=== PATIENT | female | born 1965 ===

== ENCOUNTER 2017-02-16 13:31 | Emergency (ER) | payer MEDICAID ==
[2017-02-16 13:33] VITALS: BMI 23.8
[2017-02-16 13:36] VITALS: RESP 18; TEMP 97.9
--- NOTE | 2017-02-16 14:24 | C.PDOC ---
History Of Present Illness 51 yr old female presents to the ER for sensations of dizziness and spinning for a long time. Patient states she had similar symptoms in the past and was given unknown medicine for it but has not taken any medicine recently. Patient denies fever, vision changes, nausea, vomiting or neck pain. Time Seen by Provider: 02/16/17 14:08 Chief Complaint (Nursing): Dizziness/Lightheaded History Per: Patient History/Exam Limitations: no limitations Onset/Duration Of Symptoms: Days Current Symptoms Are (Timing): Still Present Past Medical History Reviewed: Historical Data, Nursing Documentation, Vital Signs Vital Signs: Last Vital Signs Temp 97.9 F 02/16/17 16:42 Pulse 68 02/16/17 16:42 Resp 18 02/16/17 16:42 BP 122/84 02/16/17 16:42 Pulse Ox 99 02/16/17 16:42 - Medical History PMH: Colonic Polyps, Depression, Gastritis - [facility] Procedures CLOSED ENDOSCOPIC BIOPSY OF LARGE INTESTINE (02/10/13) Family History: States: No Known Family Hx - Social History Hx Tobacco Use: No Hx Alcohol Use: No Hx Substance Use: No - Immunization History Hx Tetanus Toxoid Vaccination: Yes Hx Influenza Vaccination: Yes Hx Pneumococcal Vaccination: Yes Review Of Systems Except As Marked, All Systems Reviewed And Found Negative. Constitutional: Negative for: Fever Eyes: Negative for: Vision Change Gastrointestinal: Negative for: Nausea, Vomiting Musculoskeletal: Negative for: Neck Pain Neurological: Positive for: Dizziness Physical Exam - Physical Exam Appears: Non-toxic, No Acute Distress Skin: Warm, Dry Head: Atraumatic, Normacephalic Eye(s): bilateral: Other (Bilateral horizontal fast nystagmus. ) Chest: Symmetrical, No Tenderness Cardiovascular: Rhythm Regular, No Murmur Respiratory: Normal Breath Sounds, No Rales, No Rhonchi, No Wheezing Extremity: Normal ROM, No Swelling Neurological/Psych: Oriented x3, Normal Speech, Normal Motor ED Course And Treatment O2 Sat by Pulse Oximetry: 95 (RA) Pulse Ox Interpretation: Normal - CT Scan/US CT - Head Other Rad Studies (CT/US): Read By Radiologist, Radiology Report Reviewed CT/US Interpretation: PROCEDURE: CT HEAD WITHOUT CONTRAST. HISTORY: VERTIGO. COMPARISON: None available. TECHNIQUE: Axial computed tomography images were obtained through the head/brain without intravenous contrast. Radiation dose: Total exam DLP = 821 mGy-cm. This CT exam was performed using one or more of the following dose reduction techniques: Automated exposure control, adjustment of the mA and/or kV according to patient size, and/or use of iterative reconstruction technique. FINDINGS: HEMORRHAGE: No intracranial hemorrhage. BRAIN: No mass effect or edema. No atrophy or chronic microvascular ischemic changes. Bilateral basal ganglia calcifications. VENTRICLES: Unremarkable. No hydrocephalus. CALVARIUM: Unremarkable. PARANASAL SINUSES: Mild mucosal thickening of the maxillary sinuses. MASTOID AIR CELLS: Unremarkable as visualized. No inflammatory changes. OTHER FINDINGS : None. IMPRESSION: No acute intracranial abnormality. If focal neurologic deficit persists, consider MRI. Reevaluation Time: 15:51 Reassessment Condition: Unchanged (CO PERSIST VERTIGO. PT ON CELL PHONE, APPEARS COMFORTABLE. STEADY GAIT, NO FOCAL DEF. CT NEG) Progress - Re-Evaluation Re-evaluation Note: 02/16/17 17:43 EATING WO DIFFICULTY, NO FOCAL NEURO DEF. ADVISED FU PMD - Data Reviewed Data Reviewed: Diagnostic imaging, Old records Medical Decision Making Medical Decision Making: PLAN: * CT - Head * Meclizine PO * Zofran PO Disposition Counseled Patient/Family Regarding: Studies Performed, Diagnosis, Need For Followup, Rx Given - Disposition Referrals: YOUR,PMD [Other] Disposition: HOME/ ROUTINE Disposition Time: 17:43 Condition: IMPROVED Prescriptions: Meclizine [Antivert] 50 mg PO TID PRN #21 tab PRN Reason: Dizziness Instructions: Vertigo (ED) Forms: [facility] (Korean) Print Language: SAMI - Clinical Impression Clinical Impression: Vertigo - Scribe Statement The provider has reviewed the documentation as recorded by the Dayday Olivear Provider Attestation: All medical record entries made by the Dayday were at my direction and personally dictated by me. I have reviewed the chart and agree that the record accurately reflects my personal performance of the history, physical exam, medical decision making, and the department course for this patient. I have also personally directed, reviewed, and agree with the discharge instructions and disposition.
--- NOTE | 2017-02-16 15:14 | CT ---
PROCEDURE: CT HEAD WITHOUT CONTRAST. HISTORY: VERTIGO COMPARISON: None available. TECHNIQUE: Axial computed tomography images were obtained through the head/brain without intravenous contrast. Radiation dose: Total exam DLP = 821 mGy-cm. This CT exam was performed using one or more of the following dose reduction techniques: Automated exposure control, adjustment of the mA and/or kV according to patient size, and/or use of iterative reconstruction technique. FINDINGS: HEMORRHAGE: No intracranial hemorrhage. BRAIN: No mass effect or edema. No atrophy or chronic microvascular ischemic changes. Bilateral basal ganglia calcifications. VENTRICLES: Unremarkable. No hydrocephalus. CALVARIUM: Unremarkable. PARANASAL SINUSES: Mild mucosal thickening of the maxillary sinuses. MASTOID AIR CELLS: Unremarkable as visualized. No inflammatory changes. OTHER FINDINGS: None. IMPRESSION: No acute intracranial abnormality. If focal neurologic deficit persists, consider MRI.
[2017-02-16 16:43] VITALS: BP 122/84; PULSE 68
[2017-02-16 17:44] VITALS: O2SAT 95
== END 2017-02-16 18:02 | disposition home or self-care (01) ==
LOC: C.ER 13:31
DX: R42 Dizziness and giddiness (principal)

== ENCOUNTER 2017-06-10 11:09 | Emergency (ER) | payer MEDICAID ==
[2017-06-10 11:10] VITALS: BMI 23.8
[2017-06-10 11:21] VITALS: RESP 18; O2SAT 100
[2017-06-10] MEDS ORDERED: Lidocaine 5% Patch TD STA (11:37)
[2017-06-10] MEDS ORDERED: Dexamethasone 4 mg/1 ml IM STA (11:37)
[2017-06-10] MEDS ORDERED: Lidocaine 5% Patch TD ONE (12:40)
[2017-06-10] MEDS ORDERED: Dexamethasone 4 mg/1 ml ONE (12:40)
--- NOTE | 2017-06-10 12:56 | C.PDOC ---
History Of Present Illness The patient reports 2 days history of lower back pain which is described as sharp and non-radiating. Patient also reports dizziness which is described as the room spinning. Patient reports that this feel similar to her previous vertigo. Denies headache, trauma, fever, abdominal pain, nausea/vomiting, numbness, weakness, bowel/bladder incontinence. Time Seen by Provider: 06/10/17 11:23 Chief Complaint (Nursing): Back Pain History Per: Patient History/Exam Limitations: no limitations Onset/Duration Of Symptoms: Days Current Symptoms Are (Timing): Still Present Exacerbating Factor(s): Turning, Movement Recent travel outside of the [place]: No Past Medical History Vital Signs: Last Vital Signs Temp 98.2 F 06/10/17 13:06 Pulse 74 06/10/17 13:06 Resp 18 06/10/17 13:06 BP 126/75 06/10/17 13:06 Pulse Ox 100 06/10/17 13:11 - Medical History PMH: Colonic Polyps, Depression, Gastritis Denies: Chronic Kidney Disease - [facility] Procedures CLOSED ENDOSCOPIC BIOPSY OF LARGE INTESTINE (02/10/13) Family History: States: Unknown Family Hx - Social History Hx Tobacco Use: No Hx Alcohol Use: No Hx Substance Use: No - Immunization History Hx Tetanus Toxoid Vaccination: Yes Hx Influenza Vaccination: Yes Hx Pneumococcal Vaccination: Yes Physical Exam - Physical Exam Appears: Non-toxic, No Acute Distress Skin: Normal Color, Warm, No Rash Head: Atraumatic, Normacephalic Eye(s): bilateral: Normal Inspection, PERRL, EOMI Oral Mucosa: Moist Throat: No Erythema, No Exudate Neck: Normal ROM, No Midline Cervical Tenderness, No Paracervical Tenderness, Supple Chest: Symmetrical, No Tenderness Cardiovascular: Rhythm Regular, No Friction Rub, No Murmur Respiratory: Normal Breath Sounds, No Rales, No Rhonchi, No Wheezing Gastrointestinal/Abdominal: Bowel Sounds (active), Soft, No Tenderness Back: Normal Inspection, No CVA Tenderness Extremity: Normal ROM, No Swelling Neurological/Psych: Oriented x3, Normal Speech, Normal Cranial Nerves, Normal Motor, Normal Sensation Gait: Steady ED Course And Treatment O2 Sat by Pulse Oximetry: 100 (on RA) Pulse Ox Interpretation: Normal Medical Decision Making Medical Decision Making: On first re-exam, the patient states that she still has dizziness. Meclizine ordered. On re-exam, the patient reports improvement of symptoms. Lungs are CTA, heart is RRR, abdomen is soft, non-tender, and patient is tolerating PO well.. Ambulatory in the ED with steady gait. Follow up with the medical doctor within 1-2 days. Return if worsened. Disposition - Disposition Referrals: Felisa Gama MD [Staff Provider] - Disposition: HOME/ ROUTINE Disposition Time: 12:50 Condition: GOOD Additional Instructions: Follow up with the medical doctor within 1-2 days. Return if worsened. Prescriptions: Diazepam [Valium] 2 mg PO BID #20 tablet Lidocaine 5% [Lidoderm] 1 each TP DAILY #10 patch Naproxen [Naprosyn] 500 mg PO BID #20 tab Instructions: Vertigo (ED), Acute Low Back Pain (ED) Forms: [facility] (Latvian) Print Language: MONGOLIAN - Clinical Impression Clinical Impression: Low back pain, Vertigo
[2017-06-10 13:08] VITALS: BP 126/75; PULSE 74; TEMP 98.2
== END 2017-06-10 13:19 | disposition home or self-care (01) ==
LOC: C.ER 11:09
DX: M54.5 Low back pain (principal); R42 Dizziness and giddiness
CPT/HCPCS: 96372; 99283; J1100; J1885

== ENCOUNTER 2017-08-27 23:16 | Emergency (ER) | payer MEDICAID ==
[2017-08-27 23:16] VITALS: BMI 23.8
--- NOTE | 2017-08-27 23:54 | C.PDOC ---
History Of Present Illness The patient presents to the ED for evaluation of epigastric discomfort and diffuse throat itchiness (unknown trigger) which began earlier today. Patient states she found improvement after taking an allergy pill and is able to speak in complete sentences. Patient denies fever, chills, throat swelling sensation, shortness of breath, cough, nausea, vomiting, diarrhea. Time Seen by Provider: 08/27/17 23:54 Chief Complaint (Nursing): Abdominal Pain History Per: Patient History/Exam Limitations: no limitations Onset/Duration Of Symptoms: Hrs Current Symptoms Are (Timing): Better Severity: Mild Pain Scale Rating Of: 2 Location Of Pain/Discomfort: Epigastric Radiation Of Pain To:: None Quality Of Discomfort: "Pain" Associated Symptoms: denies: Fever, Chills, Nausea, Vomiting, Diarrhea Exacerbating Factors: Other (unknown ) Alleviating Factors: Other (allergy pill ) Last Bowel Movement: Today Recent travel outside of the [place]: No Additional History Per: Patient Abnormal Vaginal Bleeding: No Past Medical History Reviewed: Historical Data, Nursing Documentation, Vital Signs Vital Signs: Last Vital Signs Temp 97.9 F 08/27/17 23:43 Pulse 70 08/27/17 23:43 Resp 16 08/27/17 23:43 BP 134/82 08/27/17 23:43 Pulse Ox 99 08/28/17 01:09 - Medical History PMH: Colonic Polyps, Depression, Gastritis Denies: Chronic Kidney Disease Surgical History: No Surg Hx - [facility] Procedures CLOSED ENDOSCOPIC BIOPSY OF LARGE INTESTINE (02/10/13) Family History: States: Unknown Family Hx - Social History Hx Tobacco Use: No Hx Alcohol Use: No Hx Substance Use: No - Immunization History Hx Tetanus Toxoid Vaccination: Yes Hx Influenza Vaccination: Yes Hx Pneumococcal Vaccination: Yes Review Of Systems Constitutional: Negative for: Fever, Chills ENT: Positive for: Other (diffuse throat itchiness ) Cardiovascular: Negative for: Chest Pain, Palpitations Respiratory: Negative for: Cough, Shortness of Breath, SOB with Excertion, Wheezing Gastrointestinal: Positive for: Other (epigastric discomfort ). Negative for: Nausea, Vomiting, Diarrhea Skin: Negative for: Rash, Lesions, Jaundice, Bruising Physical Exam - Physical Exam Appears: Non-toxic, No Acute Distress Skin: Warm, Dry Head: Normacephalic Eye(s): bilateral: Normal Inspection Oral Mucosa: Moist Tongue: No Swelling Lips: No Swelling Throat: No Erythema, No Exudate, Other (clear oropharynx) Neck: Trachea Midline, Supple Chest: Symmetrical, No Deformity, No Tenderness Cardiovascular: Rhythm Regular, No Murmur Respiratory: No Rales, No Rhonchi, No Wheezing, Other (speaking in complete sentences ) Gastrointestinal/Abdominal: Soft, No Tenderness, No Guarding, No Rebound Extremity: Normal ROM, Capillary Refill (less than 2 seconds ) Neurological/Psych: Oriented x3 Gait: Steady ED Course And Treatment - Laboratory Results Result Diagrams: 08/28/17 01:40 08/28/17 01:40 O2 Sat by Pulse Oximetry: 99 (on RA ) Pulse Ox Interpretation: Normal Progress Note: Bloodwork and UA ordered and reviewed. Benadryl IVP, Pepcid IVP , Solu-Medrol IVP and IV Fluids administered. Reevaluation Time: 02:29 Reassessment Condition: Improved Medical Decision Making Medical Decision Making: Upon provider reevaluation patient is feeling better, is medically stable, and requires no further treatment in the ED at this time. Patient will be discharged home with Rx for prednisone . Counseling was provided and all questions were answered regarding diagnosis and need for follow up with the referred clinic. There is agreement to discharge plan. Return if symptoms persist or worsen. Disposition Counseled Patient/Family Regarding: Studies Performed, Diagnosis, Need For Followup, Rx Given - Disposition Referrals: Colleen Parekh MD [Medical Doctor] - Disposition: HOME/ ROUTINE Disposition Time: 23:54 Condition: FAIR Additional Instructions: Please return of symptoms recur. Also use benadryl, pepcid and claritin Prescriptions: Prednisone [Deltasone] 20 mg PO DAILY #5 tablet Instructions: General Allergic Reaction (ED), Abdominal Pain (ED) Forms: [employer] (Luxembourgish) Print Language: GABONESE - Clinical Impression Clinical Impression: Abdominal pain, Allergic reaction - Scribe Statement The provider has reviewed the documentation as recorded by the Scribe (Shelby Cardona) Provider Attestation: All medical record entries made by the Scribe were at my direction and personally dictated by me. I have reviewed the chart and agree that the record accurately reflects my personal performance of the history, physical exam, medical decision making, and the department course for this patient. I have also personally directed, reviewed, and agree with the discharge instructions and disposition.
[2017-08-28] MEDS ORDERED: Sodium Chloride 0.9% 1,000 ML IV ONE (00:40)
[2017-08-28] MEDS ORDERED: DiphenhydrAMINE 50 mg/ml Inj IVP STA (00:40)
[2017-08-28] MEDS ORDERED: MethylPREDNISolone 40 mg Vial IVP STA (00:40)
[2017-08-28] MEDS ORDERED: DiphenhydrAMINE 50 mg/ml Inj ONE (01:02)
[2017-08-28] MEDS ORDERED: Sodium Chloride 0.9% 1,000 ML ONE (01:03)
[2017-08-28 01:51] LABS: SQUAMOUS EPITHIAL 3 /hpf (0-5); URINE BILIRUBIN NEGATIVE (NEGATIVE); URINE CLARITY Clear (Clear); URINE COLOR Yellow (YELLOW); URINE GLUCOSE (UA) NORMAL (Normal); URINE LEUKOCYTE ESTERASE NEG Leu/uL (Negative); URINE NITRATE NEGATIVE (NEGATIVE); URINE PROTEIN NEGATIVE (NEGATIVE); URINE UROBILINOGEN NORMAL mg/dL (0.2-1.0)
[2017-08-28 01:52] LABS: BASO % 0.3 % (0.0-2.0); EOS # 0.1 K/uL (0.0-0.7); EOS % 2.6 % (0.0-4.0); HEMOGLOBIN 11.4 g/dL (11.0-16.0); LYMPH # 1.4 K/uL (1.0-4.3); LYMPH % 25.6 % (20.0-40.0); MEAN CELL VOLUME 84.7 fL (81.0-99.0); MEAN CORPUSCULAR HEMOGLOBIN 27.5 pg (27.0-31.0); MEAN CORPUSCULAR HGB CONC 32.4 g/dL (33.0-37.0); MEAN PLATELET VOLUME 8.5 fL (7.2-11.7); MONO # 0.4 K/uL (0.0-0.8); MONO % 6.4 % (0.0-10.0); NEUT # 3.6 K/uL (1.8-7.0); NEUT % 65.1 % (50.0-75.0); RBC 4.15 Mil/uL (3.80-5.20); RED CELL DISTRIBUTION WIDTH 20.7 % (11.5-14.5); WHITE BLOOD COUNT 5.6 K/uL (4.8-10.8)
[2017-08-28 02:10] LABS: ALB/GLOB RATIO 1.3 (1.0-2.1); ALBUMIN 3.9 g/dL (3.5-5.0); ALT/SGPT 50 U/L (9-52); AST/SGOT 37 U/L (14-36); BLOOD UREA NITROGEN 19 mg/dL (7-17); CALCIUM 8.8 mg/dl (8.6-10.4); GFR AFRICAN-AMERICAN > 60; GFR NON-AFRICAN AMERICAN > 60; LIPASE 111 U/L (23-300)
[2017-08-28 02:11] LABS: URINE BLOOD NEGATIVE (NEGATIVE)
[2017-08-28 02:20] LABS: HCG,QUALITATIVE URINE NEGATIVE (NEGATIVE)
[2017-08-28 03:11] VITALS: BP 107/68; PULSE 78; RESP 18; TEMP 98.1; O2SAT 98
== END 2017-08-28 03:11 | disposition home or self-care (01) ==
LOC: C.ER 23:16
DX: T78.40XA Allergy, unspecified, initial encounter (principal); X58.XXXA Exposure to other specified factors, initial encounter; R10.9 Unspecified abdominal pain
CPT/HCPCS: 80053; 81001; 83690; 84703; 85025; 96361; 96374; 96375; 99283; J1200; J2920; J7040